=== PATIENT | male | born 1990 | race Two or more races ===

== ENCOUNTER → 2025-05-07 | Outpatient (CLI) | payer MEDICAID, SELFPAY ==
--- NOTE | 2025-05-07 15:30 | XR_ITS ---
EXAMINATION: Ultrasound soft tissue right axilla TECHNIQUE: Grayscale sonographic images soft tissue axilla Date and time: April,, 1530 hours INDICATIONS: Bilateral axillary lumps noticed beginning 1 year ago. FINDINGS: Soft tissue density isoechoic at the right axilla 5.1 x 6.2 cm and in the left axilla 5.9 x 5.7 cm, most consistent with lipomas IMPRESSION: Recommend 6-month follow-up bilateral axillary sonography to document stability of probable lipomas in both right and left axilla
== END | disposition home or self-care (01) ==
LOC: CDIM 15:16
PROVIDERS: PCP Nurse Practitioner Family; Referring Provider Nurse Practitioner Family; Visit Provider Nurse Practitioner Family
DX: M79.89 Other specified soft tissue disorders (principal)
CPT/HCPCS: 76604